=== PATIENT | male | born 1970 | race Caucasian/White ===

== ENCOUNTER 2020-04-14 15:33 | Emergency (ER) | payer MEDICAID ==
[~2020-04-14] VITALS: Ht 175.3 cm; Wt 81.6 kg
[2020-04-14 15:33] VITALS: BP_SYST 132
[2020-04-14 16:03] VITALS: BP_SYST 132
== END 2020-04-14 16:03 | disposition home or self-care (01) ==
LOC: SED 15:33
DX: M13.871 Other specified arthritis, right ankle and foot (principal)
CPT/HCPCS: 99283